=== PATIENT | female | born 1975 | race Asian ===

== ENCOUNTER 2017-05-18 13:37 | Day surgery (SDC) | payer MEDICAID ==
[~2017-05-18] VITALS: Ht 157.5 cm; Wt 52.2 kg
[~2017-05-18 13:37] MED LIST: ASCO500T8 PO; CALC-534 PO; CALC625T23 PO; CHOL10003 PO; FAMO20TA7 PO; LORA10TA3 PO; MAGN400T7 PO; METR500T8 PO; MULT-658 PO; OXYC-302 PO; [UNRECOGNIZED DRUG - OTHER] PO
[2017-05-18] MEDS ORDERED: LACTATED RINGERS 1,000 ML IV SCH (13:46)
[2017-05-18 14:05] VITALS: BP 119/75
[2017-05-18 14:27] LABS: HCG UR LOT HCG706132
[2017-05-18 14:36] LABS: HCG UR OBC PASS
[2017-05-18] MEDS ORDERED: MEPERIDINE/PF 25MG/0.5ML IVPush PRN ×2 (17:00→18:30)
[2017-05-18] MEDS ORDERED: PROMETHAZINE 25 MG/ML, 1ML IV PRN ×2 (17:00→18:30)
[2017-05-18] MEDS ORDERED: OXYcodone 5 MG/5 ML ORAL.SOL UDC PO PRN ×2 (17:00→18:30)
[2017-05-18] MEDS ORDERED: LORazepam 2 MG/ML, 1ML IVPush PRN ×2 (17:00→18:30)
[2017-05-18] MEDS ORDERED: ALBUTEROL SULFATE 2.5 MG/3 ML NPPB PRN (17:00)
[2017-05-18] MEDS ORDERED: HYDROmorphone 2 MG/ML, 1ML IV PRN (17:00)
[2017-05-18] MEDS ORDERED: ACETAMINOPHEN 325 MG TABLET PO PRN ×2 (17:00→18:30)
[2017-05-18] MEDS ORDERED: MIDAZOLAM 1 MG/ML, 2ML ONE (17:38)
[2017-05-18] MEDS ORDERED: FENTANYL PF 250 MCG/5ML ONE (17:39)
[2017-05-18] MEDS ORDERED: KETAMINE 10 MG/ML, 20ML ONE (17:40)
[2017-05-18] MEDS ORDERED: PROPOFOL 10 MG/ML, 20ML ONE ×2 (17:41)
[2017-05-18] MEDS ORDERED: DEXAMETHASONE 4 MG/ML, 1ML ONE (17:43)
[2017-05-18] MEDS ORDERED: ONDANSETRON 2MG/ML, 2ML ONE (17:43)
[2017-05-18] MEDS ORDERED: BUPIVACAINE/PF 0.5% ONE (17:43)
[2017-05-18] MEDS ORDERED: CEFAZOLIN 1,000 MG ONE (18:00)
[2017-05-18] MEDS ORDERED: LABETALOL 5MG/ML, 20ML IV PRN (18:30)
[2017-05-18] MEDS ORDERED: HYDROmorphone 1 MG/ML, 1ML IV PRN (18:30)
[2017-05-18] MEDS ORDERED: ALBUTEROL/IPRATROPIUM 2.5MG/0.5MG, 3 ML NPPB PRN (18:30)
[2017-05-18] MEDS ORDERED: MIDAZOLAM 1 MG/ML, 2ML IV PRN (18:30)
[2017-05-18] MEDS ORDERED: ONDANSETRON 2MG/ML, 2ML IVPush PRN (18:30)
[2017-05-18] MEDS ORDERED: FENTANYL PF 100 MCG/2ML IV PRN (18:30)
[2017-05-18] MEDS ORDERED: EPHEDRINE 50 MG/ML, 1ML IVPush PRN (18:30)
[2017-05-18] MEDS ORDERED: ACETAMINOPHEN 650 MG/20.3 ML UDC ONE (19:03)
[2017-05-18] MEDS ORDERED: FENTANYL PF 100 MCG/2ML ONE (19:03)
[2017-05-18] MEDS ORDERED: OXYcodone 5 MG/5 ML ORAL.SOL UDC ONE (19:03)
[2017-05-18] MEDS: FENTANYL PF 100 MCG/2ML IV PRN ×2 (19:05→19:15)
== END 2017-05-18 20:55 | disposition home or self-care (01) ==
LOC: SDC 13:37 → 4NOR 20:00 → SDC 20:55
PROVIDERS: ATTEND Orthopaedic Surgery
DX: T84.84XA Pain due to internal orthopedic prosthetic devices, implants and grafts, initial encounter (principal); Y83.8 Other surgical procedures as the cause of abnormal reaction of the patient, or of later complication, without mention of misadventure at the time of the procedure; Y92.89 Other specified places as the place of occurrence of the external cause
CPT/HCPCS: 20680; 73100; 76000; 81025; J0690; J1100; J2250; J2405; J2704; J3010; J3490; J7120